=== PATIENT | female | born 1940 | race Caucasian/White ===

== ENCOUNTER → 2019-04-24 | Outpatient (CLI) | payer MEDICARE, OTHER ==
--- NOTE | 2019-04-24 13:59 | Diagnostic Imaging Report ---
PROCEDURE: CT head without contrast. TECHNIQUE: Multiple contiguous axial images were obtained through the brain without the use of intravenous contrast. Auto Exposure Controls were utilized during the CT exam to meet ALARA standards for radiation dose reduction. INDICATION: Dizziness and memory loss. COMPARISON: No prior studies are available for comparison. FINDINGS: Ventricles and sulci are prominent, consistent with cerebral atrophy. There is moderate periventricular hypodensity noted, consistent with chronic microvascular ischemia. No sulcal effacement or midline shift is identified. No acute intra-axial or extra-axial hemorrhage is detected. Cisterns are patent. Visualized paranasal sinuses are clear. IMPRESSION: Cerebral volume loss and changes of chronic microvascular ischemia. No acute intracranial process is detected. Dictated by: Dictated on workstation # [id number]
== END ==
LOC: RAD FS 12:25
PROVIDERS: ATTEND Family Medicine
DX: I67.82 Cerebral ischemia (principal); G93.89 Other specified disorders of brain
CPT/HCPCS: 70450

== ENCOUNTER 2021-11-15 13:04 | Emergency (ER) | payer MEDICARE, OTHER ==
[~2021-11-15] VITALS: Ht 154 cm; Wt 61.0 kg
[2021-11-15] MEDS ORDERED: fentaNYL INJ 100 MCG/2 ML AMP IVP ONE ×2 (13:15→15:15)
[2021-11-15] MEDS ORDERED: ORPHENADRINE 60 MG/2 ML (NORFLEX) AMP (ED ONLY) IV ONE (13:15)
[2021-11-15 13:33] LABS: BASOPHILS # (AUTO) 0.1 10^3/uL (0.0-0.1); BASOPHILS % (AUTO) 1 % (0-10); EOSINOPHILS # (AUTO) 0.1 10^3/uL (0.0-0.3); EOSINOPHILS % (AUTO) 1 % (0-10); HEMATOCRIT 41 % (35-52); HEMOGLOBIN 13.8 g/dL (11.5-16.0); LYMPHOCYTES # (AUTO) 1.8 10^3/uL (1.0-4.0); LYMPHOCYTES % (AUTO) 13 % (12-44); MEAN CORPUSCULAR HEMOGLOBIN 30 pg (25-34); MEAN CORPUSCULAR HGB CONC 33 g/dL (32-36); MEAN CORPUSCULAR VOLUME 89 fL (80-99); MEAN PLATELET VOLUME 9.1 fL (9.0-12.2); MONOCYTES # (AUTO) 0.9 10^3/uL (0.0-1.0); MONOCYTES % (AUTO) 6 % (0-12); NEUTROPHILS # (AUTO) 11.4 10^3/uL (1.8-7.8); NEUTROPHILS % (AUTO) 80 % (42-75); PLATELET COUNT 391 10^3/uL (130-400); WHITE BLOOD COUNT 14.4 10^3/uL (4.3-11.0)
[2021-11-15 13:52] LABS: BILIRUBIN,URINE NEGATIVE (NEGATIVE); CLARITY,URINE CLOUDY; COLOR,URINE YELLOW; GLUCOSE, URINE (UA) NEGATIVE (NEGATIVE); KETONES,URINE NEGATIVE (NEGATIVE); LEUKOCYTE ESTERASE ,URINE NEGATIVE (NEGATIVE); NITRITE,URINE NEGATIVE (NEGATIVE); PH,URINE 5.5 (5-9); PROTEIN,URINE TRACE (NEGATIVE)
[2021-11-15 13:59] LABS: BILIRUBIN,TOTAL 0.4 MG/DL (0.1-1.0); CALCIUM 9.5 MG/DL (8.5-10.1); CREATININE SERUM 0.78 MG/DL (0.60-1.30); MAGNESIUM 1.8 MG/DL (1.6-2.4); POTASSIUM 3.4 MMOL/L (3.6-5.0); TOTAL PROTEIN 7.3 GM/DL (6.4-8.2)
[2021-11-15 14:00] LABS: ALBUMIN 4.3 GM/DL (3.2-4.5)
[2021-11-15 14:06] LABS: BACTERIA,URINE FEW /HPF; RBC,URINE 0-2 /HPF
[2021-11-15 14:21] LABS: BAND NEUTROPHILS 1 %; BASOPHILS % (MANUAL) 1 %; EOSINOPHILS % (MANUAL) 0 %; LYMPHOCYTES % (MANUAL) 12 %; MONOCYTES % (MANUAL) 6 %; NEUTROPHILS % (MANUAL) 80 %
[2021-11-15 14:38] VITALS: BP 149/77
[2021-11-15] MEDS ORDERED: HOLD METFORMIN - RECEIVED CONTRAST 20 ML VIAL IV SCH (15:00)
[2021-11-15] MEDS ORDERED: IOHEXOL 350 MG/ML 100 ML (OMNIPAQUE 350) VIAL IV ONE (15:00)
[2021-11-15] MEDS ORDERED: NS 100 ML (IVPB) BAG IV ONE (15:00)
--- NOTE | 2021-11-15 15:16 | Diagnostic Imaging Report ---
PROCEDURE: CT abdomen and pelvis with contrast. TECHNIQUE: Multiple contiguous axial images were obtained through the abdomen and pelvis after administration of intravenous contrast. Auto Exposure Controls were utilized during the CT exam to meet ALARA standards for radiation dose reduction. All CT scans use one or more of the following dose optimizing techniques: automated exposure control, MA and/or KvP adjustment based on patient size and exam type or iterative reconstruction. INDICATION: Right flank pain. COMPARISON: No prior studies are available for comparison. The lung bases are clear. No discrete liver mass is identified. Gallbladder is surgically absent. There is no biliary ductal dilatation. Pancreas and spleen are unremarkable. No adrenal mass is identified. Kidneys are unremarkable apart from cortical low-attenuation lesion upper pole left kidney consistent with a cyst. There is a filter within the IVC. Aorta is nonaneurysmal. Small and large bowel loops are normal caliber. There is no obstruction. There is diverticulosis of the descending and sigmoid colon but no evidence of acute diverticulitis. Partially filled urinary bladder is unremarkable. There is no free fluid or fluid collection identified. Bony structures are nonacute. IMPRESSION: 1. Uncomplicated diverticulosis. 2. Left renal cyst. 3. No acute feature identified. Dictated by: Dictated on workstation # [id number]
[2021-11-15 16:05] LABS: PROTHROMBIN TIME PATIENT 31.6 SEC (12.2-14.7)
[2021-11-15] MEDS ORDERED: CYCL5TAB PO ×2 (16:37→17:01)
[2021-11-15] MEDS ORDERED: ACHD5005 PO ×2 (16:37→17:01)
--- NOTE | 2021-11-15 16:38 | ED General ---
General Chief Complaint: Back Problems Stated Complaint: BACK PAIN Nursing Triage Note: Patient has presented to ER with cc of right side back pain and spasams and frequent urination. Source of Information: Patient, Family, Old Records Exam Limitations: No Limitations History of Present Illness Date Seen by Provider: Nov 15, 2021 Allergies and Home Medications Allergies Coded Allergies: No Known Drug Allergies (Unverified , 11/15/21) Patient Home Medication List Cyclobenzaprine HCl (Cyclobenzaprine HCl) 5 Mg Tablet, 5 MG PO TID PRN for SPASMS Prescribed by: KEN HOLLIS on 11/15/21 1637 Hydrocodone/Acetaminophen (Hydrocodone-Acetamin 5-325 mg) 5 Mg-325 Mg Tablet, 1 TAB PO Q6H PRN for PAIN-MODERATE (5-7) Prescribed by: KEN HOLLIS on 11/15/21 1638 Past Zjgzvvk-Dysvbg-Qpwjdg Hx Patient Social History Tobacco Use?: No Use of E-Cig and/or Vaping dev: No Substance use?: No Alcohol Use?: No Physical Exam Vital Signs Vital Signs - First Documented 11/15/21 14:38 Temp 36.4 Pulse 110 Resp 22 B/P (MAP) 149/77 (101) Pulse Ox 100 O2 Delivery Room Air Capillary Refill : Height, Weight, BMI Height: '" Weight: lbs. oz. kg; 25.00 BMI Method: Progress/Results/Core Measures Suspected Sepsis SIRS Temperature: Pulse: 110 Respiratory Rate: 22 Laboratory Tests 11/15/21 13:20: White Blood Count 14.4H Blood Pressure 149 /77 Mean: 101 Laboratory Tests 11/15/21 13:20: Creatinine 0.78, INR Comment 3.0H, Platelet Count 391, Total Bilirubin 0.4 Results/Orders Lab Results Laboratory Tests Test 11/15/21 13:20 11/15/21 13:48 Range/Units White Blood Count 14.4 H 4.3-11.0 10^3/uL Red Blood Count 4.66 3.80-5.11 10^6/uL Hemoglobin 13.8 11.5-16.0 g/dL Hematocrit 41 35-52 % Mean Corpuscular Volume 89 80-99 fL Mean Corpuscular Hemoglobin 30 25-34 pg Mean Corpuscular Hemoglobin Concent 33 32-36 g/dL Red Cell Distribution Width 13.5 10.0-14.5 % Platelet Count 391 130-400 10^3/uL Mean Platelet Volume 9.1 9.0-12.2 fL Immature Granulocyte % (Auto) 1 % Neutrophils (%) (Auto) 80 H 42-75 % Lymphocytes (%) (Auto) 13 12-44 % Monocytes (%) (Auto) 6 0-12 % Eosinophils (%) (Auto) 1 0-10 % Basophils (%) (Auto) 1 0-10 % Neutrophils # (Auto) 11.4 H 1.8-7.8 10^3/uL Lymphocytes # (Auto) 1.8 1.0-4.0 10^3/uL Monocytes # (Auto) 0.9 0.0-1.0 10^3/uL Eosinophils # (Auto) 0.1 0.0-0.3 10^3/uL Basophils # (Auto) 0.1 0.0-0.1 10^3/uL Immature Granulocyte # (Auto) 0.1 0.0-0.1 10^3/uL Neutrophils % (Manual) 80 % Lymphocytes % (Manual) 12 % Monocytes % (Manual) 6 % Eosinophils % (Manual) 0 % Basophils % (Manual) 1 % Band Neutrophils 1 % Prothrombin Time 31.6 H 12.2-14.7 SEC INR Comment 3.0 H 0.8-1.4 Sodium Level 138 135-145 MMOL/L Potassium Level 3.4 L 3.6-5.0 MMOL/L Chloride Level 100 98-107 MMOL/L Carbon Dioxide Level 24 21-32 MMOL/L Anion Gap 14 5-14 MMOL/L Blood Urea Nitrogen 11 7-18 MG/DL Creatinine 0.78 0.60-1.30 MG/DL Estimat Glomerular Filtration Rate 76 BUN/Creatinine Ratio 14 Glucose Level 144 H 70-105 MG/DL Calcium Level 9.5 8.5-10.1 MG/DL Corrected Calcium 9.3 8.5-10.1 MG/DL Magnesium Level 1.8 1.6-2.4 MG/DL Total Bilirubin 0.4 0.1-1.0 MG/DL Aspartate Amino Transf (AST/SGOT) 22 5-34 U/L Alanine Aminotransferase (ALT/SGPT) 17 0-55 U/L Alkaline Phosphatase 125 40-136 U/L C-Reactive Protein 0.48 <0.50 MG/DL Total Protein 7.3 6.4-8.2 GM/DL Albumin 4.3 3.2-4.5 GM/DL Lipase 16 8-78 U/L Urine Color YELLOW Urine Clarity CLOUDY Urine pH 5.5 5-9 Urine Specific [place] 1.025 H 1.016-1.022 Urine Protein TRACE H NEGATIVE Urine Glucose (UA) NEGATIVE NEGATIVE Urine Ketones NEGATIVE NEGATIVE Urine Nitrite NEGATIVE NEGATIVE Urine Bilirubin NEGATIVE NEGATIVE Urine Urobilinogen 0.2 < = 1.0 MG/DL Urine Leukocyte Esterase NEGATIVE NEGATIVE Urine RBC (Auto) 2+ H NEGATIVE Urine RBC 0-2 /HPF Urine WBC 2-5 /HPF Urine Squamous Epithelial Cells 2-5 /HPF Urine Crystals NONE /LPF Urine Bacteria FEW H /HPF Urine Casts NONE /LPF Urine Mucus NEGATIVE /LPF Urine Culture Indicated YES My Orders Orders - KEN RODRIGUEZ MD Ed Iv/Invasive Line Start (11/15/21 13:12) Fentanyl Inj (Sublimaze Injection) (11/15/21 13:15) Orphenadrine Inj (Ed Only) (Norflex Inje (11/15/21 13:15) Cbc With Automated Diff (11/15/21 13:13) Comprehensive Metabolic Panel (11/15/21 13:13) Lipase (11/15/21 13:13) Magnesium (11/15/21 13:13) Ua Culture If Indicated (11/15/21 13:13) Crp Fs (11/15/21 13:13) Manual Differential (11/15/21 13:20) Urine Culture (11/15/21 13:48) Ct Abdomen/Pelvis W (11/15/21 14:26) Iohexol Injection (Omnipaque 350 Mg/Ml 1 (11/15/21 15:00) Received Contrast (Hold Metformin- Contr (11/15/21 15:00) Ns (Ivpb) (Sodium Chloride 0.9% Ivpb Bag (11/15/21 15:00) Protime With Inr (11/15/21 15:05) Fentanyl Inj (Sublimaze Injection) (11/15/21 15:15) Hydrocodone/Apap 5/325 Tablet (Lortab 5 (11/15/21 17:00) Hydrocodone/Apap 5/325 Tablet (Lortab 5 (11/15/21 16:50) Medications Given in ED Current Medications Medications Dose Ordered Sig/Tabitha Route Start Time Stop Time Status Last Admin Dose Admin Fentanyl Citrate 50 mcg ONCE ONCE IVP 11/15/21 13:15 11/15/21 13:16 DC 11/15/21 13:22 50 MCG Fentanyl Citrate 50 mcg ONCE ONCE IVP 11/15/21 15:15 11/15/21 15:16 DC 11/15/21 15:11 50 MCG Iohexol 100 ml ONCE ONCE IV 11/15/21 15:00 11/15/21 15:01 DC 11/15/21 14:59 100 ML Orphenadrine Citrate 30 mg ONCE ONCE IV 11/15/21 13:15 11/15/21 13:16 DC 11/15/21 13:21 30 MG Sodium Chloride 100 ml ONCE ONCE IV 11/15/21 15:00 11/15/21 15:01 DC 11/15/21 14:59 100 ML Vital Signs/I&O 11/15/21 14:38 Temp 36.4 Pulse 110 Resp 22 B/P (MAP) 149/77 (101) Pulse Ox 100 O2 Delivery Room Air Capillary Refill : Blood Pressure Mean: 101 Departure Impression Primary Impression: Muscle spasm of back Additional Impression: Right flank pain Disposition: HOME, SELF-CARE Condition: Improved Departure-Patient Inst. Decision time for Depature: 16:34 Referrals: MITA SALDIVAR MD (PCP/Family) Primary Care Physician Patient Instructions: Muscle Spasm ED Add. Discharge Instructions: Keep your follow-up appointment tomorrow. Use hydrocodone as prescribed for pain management. Hydrocodone may cause drowsiness and constipation. You may wish to take a stool softener with the hydrocodone to prevent constipation. Use with caution due to the drowsiness. Use cyclobenzaprine as prescribed for muscle spasms. This medication may also cause some drowsiness especially if used in combination with hydrocodone. Use with caution. You have been prescribed a lower dose to try until you know how you respond to it. Discussed these medications at your follow-up appointment with your doctor. Also discussed your urine culture. Results should be available on Monday or . Return to the ER if you have worsening symptoms despite following these instructions or if you develop new concerning problems. All discharge instructions reviewed with patient and/or family. Voiced understanding. Scripts Cyclobenzaprine HCl (Cyclobenzaprine HCl) 5 Mg Tablet 5 MG PO TID PRN for SPASMS, #10 TAB Prov: KEN RODRIGUEZ MD 11/15/21 Hydrocodone/Acetaminophen (Hydrocodone-Acetamin 5-325 mg) 5 Mg-325 Mg Tablet 1 TAB PO Q6H PRN for PAIN-MODERATE (5-7), #10 TAB Prov: KEN RODRIGUEZ MD 11/15/21 KEN RODRIGUEZ MD Nov 15, 2021 4:38 pm
[2021-11-15] MEDS ORDERED: HYDROcodone/APAP 5 MG/325 MG (LORTAB) TAB ONE (16:50)
[2021-11-15] MEDS ORDERED: HYDROcodone/APAP 5 MG/325 MG (LORTAB) TAB PO ONE (17:00)
== END 2021-11-15 16:44 | disposition home or self-care (01) ==
LOC: EDUNIT# 13:04 → ER FS 13:08
DX: M62.830 Muscle spasm of back (principal); R10.9 Unspecified abdominal pain
CPT/HCPCS: 36415; 74177; 80053; 81000; 83690; 83735; 85007; 85027; 85610; 86141; 87088; Q9967

== ENCOUNTER 2022-02-11 08:25 | Emergency (ER) | payer MEDICARE, OTHER ==
[~2022-02-11 08:25] MED LIST: ACHD5005 PO; CYCL5TAB PO
--- NOTE | 2022-02-11 08:29 | ED General ---
General Stated Complaint: FALL History of Present Illness Date Seen by Provider: Feb 11, 2022 Time Seen by Provider: 08:29 Initial Comments 82-year-old female presents following a fall. Patient has a skin tear on her left upper arm. Patient reports that it was dark and she just stumbled. Patient complains of chronic low back pain. She has known degenerative disc disease along with a lumbar fracture. She did not hit her head. She denies any numbness tingling. She does report she has had some difficulties with bowel mov ements over the last few days but has chronic problems with constipation. Reports that she has tried some "laxatives" with no relief. Patient was brought in by EMS. She received 3 mg morphine in route. Allergies and Home Medications Allergies Coded Allergies: No Known Drug Allergies (Unverified , 11/15/21) Patient Home Medication List Home Medication List Reviewed: Yes Cyclobenzaprine HCl (Cyclobenzaprine HCl) 5 Mg Tablet, 5 MG PO TID PRN for SPASMS Prescribed by: KEN HOLLIS on 11/15/21 1701 Hydrocodone/Acetaminophen (Hydrocodone-Acetamin 5-325 mg) 5 Mg-325 Mg Tablet, 1 TAB PO Q6H PRN for PAIN-MODERATE (5-7) Prescribed by: KEN HOLLIS on 11/15/21 1702 Review of Systems Review of Systems Constitutional: No chills, No fever EENTM: no symptoms reported Respiratory: no symptoms reported Cardiovascular: no symptoms reported Gastrointestinal: No abdominal pain; constipation; No nausea, No vomiting Genitourinary: no symptoms reported Musculoskeletal: see HPI, back pain Skin: see HPI Psychiatric/Neurological: No Symptoms Reported Hematologic/Lymphatic: No Symptoms Reported Immunological/Allergic: no symptoms reported Past Gpqwyls-Bnbrei-Jilzts Hx Past Medical History Surgeries: Yes Breast, Hysterectomy Respiratory: Yes Pulmonary Embolism Cardiac: Yes Deep Vein Thrombosis Neurological: No Reproductive Disorders: No Genitourinary: Yes (History of UTI) Gastrointestinal: Yes Colitis Musculoskeletal: Yes Chronic Back Pain Endocrine: No HEENT: No Cancer: No Psychosocial: No Integumentary: No Physical Exam Vital Signs Vital Signs - First Documented 02/11/22 08:25 Temp 36.4 Pulse 117 Resp 16 B/P (MAP) 152/96 (114) Pulse Ox 95 O2 Delivery Room Air Capillary Refill : Height, Weight, BMI Height: '" Weight: lbs. oz. kg; 25.00 BMI Method: General Appearance: No Apparent Distress, WD/WN Eyes: Bilateral Eye Normal Inspection HEENT: PERRL/EOMI, Moist Mucous Membranes Neck: Non Tender, Supple Respiratory: Lungs Clear, Normal Breath Sounds Cardiovascular: Regular Rate, Rhythm, No Edema Gastrointestinal: Non Tender, Soft Back: Other (Generalized tenderness lower back) Extremity: Normal Capillary Refill Neurologic/Psychiatric: Alert, Oriented x3, No Motor/Sensory Deficits, Normal Mood/Affect, bill of lading clerk II-XII Norm as Tested Skin: Other (Moderate skin tear left upper arm, nonsuturable) Progress/Results/Core Measures Suspected Sepsis SIRS Temperature: Pulse: Respiratory Rate: Blood Pressure / Mean: Results/Orders My Orders Orders - ROXANE GRAFF DO Abdomen (Kub) 1 View (02/11/22 08:29) Lumbar Spine 2 Or 3 View (02/11/22 08:29) Vital Signs/I&O 02/11/22 08:25 Temp 36.4 Pulse 117 Resp 16 B/P (MAP) 152/96 (114) Pulse Ox 95 O2 Delivery Room Air Capillary Refill : Progress Note : Progress Note Patient with a T12 compression fracture. This is likely about a week old. Patient was seen in [place] earlier this week following a fall and was told that she had a fracture which family thought was an L1. There is no L1 fracture noted on x-ray. I will place her in a TLSO to help with pain control. Her primary care provider is trying to arrange an outpatient MRI. She should also follow-up with her networking specialist. She already has hydrocodone and muscle relaxants prescribed. If they need anything stronger they need to follow-up with her primary care provider. She can start some MiraLAX to help with her chronic constipation. She is stable and discharged Departure Impression Primary Impression: Compression fracture of T12 vertebra Qualified Codes: S22.080A - Wedge compression fracture of T11-T12 vertebra, initial encounter for closed fracture Additional Impression: Constipation due to opioid therapy Disposition: HOME, SELF-CARE Condition: Stable Departure-Patient Inst. Referrals: MITA SALDIVAR MD (PCP) Primary Care Physician Patient Instructions: Vertebral Compression Fracture ED, Constipation, Adult ED Add. Discharge Instructions: MiraLAX 1-2 times daily as needed for soft daily stool while on opioid pain medication, drink plenty of fluid Please follow-up with your primary care provider arrange for further outpatient evaluation and pain management. ROXANE GRAFF DO Feb 11, 2022 08:29
--- NOTE | 2022-02-11 09:25 | Diagnostic Imaging Report ---
INDICATION: Constipation. FINDINGS: KUB. There is considerable stool within the ascending and transverse colon. There is gas with no stool seen from the splenic flexure to the rectum. The stomach and small bowel are not distended. There is IVC filter appearing in good orientation. IMPRESSION: 1. There is considerable stool within the right side of the colon. Dictated by: Dictated on workstation # [id number]
--- NOTE | 2022-02-11 09:29 | Diagnostic Imaging Report ---
INDICATION: Constipation. Back pain. FINDINGS: 3 views. There is grade 1 anterolisthesis of L4 on L5. There is associated degenerative disc and facet disease. There are no pars defects demonstrated. There is superior compression deformity of T12 with approximately 50% loss of body height. IMPRESSION: 1. There is a new compression fracture of T12 which was not present on previous CT scan of 11/15/2021. 2. Grade 1 anterolisthesis of L4 on L5 with advanced degenerative disc and facet disease. Dictated by: Dictated on workstation # [id number]
[2022-02-11 09:53] VITALS: BP 148/87
== END 2022-02-11 09:53 | disposition home or self-care (01) ==
LOC: ER FS 08:25 → EDUNIT# 08:25 → ER FS 09:53
DX: S22.080A Wedge compression fracture of T11-T12 vertebra, initial encounter for closed fracture (principal); K59.03 Drug induced constipation; T40.2X5A Adverse effect of other opioids, initial encounter; W19.XXXA Unspecified fall, initial encounter
CPT/HCPCS: 12013; 72100; 74018

== ENCOUNTER → 2022-02-16 | Outpatient (CLI) | payer MEDICARE, OTHER ==
--- NOTE | 2022-02-16 11:56 | Diagnostic Imaging Report ---
PROCEDURE: MRI lumbar spine. TECHNIQUE: Multiplanar, multisequence MRI of the lumbar spine was performed without contrast. INDICATION: Back pain, recent falls. COMPARISON: Exam is correlated with the abdominopelvic CT dated 11/15/2021 as well as correlated with lumbar radiographs 02/11/2022. FINDINGS: The T12 vertebral body fracture showed no convincing progressive stature loss when correlated with the recent lumbar radiographs but is new from the correlative CT. It showed moderate marrow edema consistent with a subacute recent fracture. Its superior endplate is retropulsed 4.8 mm and results in mild spinal canal stenosis. Marrow edema extends into the base of the left greater than right pedicles, but they did not appear fractured. Remaining level showed no other acute or subacute abnormalities. No additional fracture found. Anterolisthesis grade 1 of L3 on L4 and L4 on L5 is unchanged. The lower thoracic cord and conus appeared normal. No epidural or paraspinal hemorrhage or fluid collection. At L1-L2, the listhesis and endplate osteophytes result in a mild degree of spinal canal stenosis with [id number]-[id number] left and mild right foraminal narrowing. At L3-L4, disc bulge and endplate osteophytes with thickened ligamenta flava and facet arthrosis result in mild canal stenosis with no significant foraminal narrowing. At L4-L5, disc bulge, facet arthrosis, and ligamentous thickening result in jnbsawak-ei-gomplf canal stenosis with moderate biforaminal narrowing and vlqb-[id number]-[id number] bilateral lateral recess impingement. At the L5-S1 level, facet arthrosis, greater right, is present with no substantial stenosis. IMPRESSION: 1. Edema associated with the subacute T12 retropulsed vertebral body fracture showed no progressive stature loss from correlative radiographs and only mild resultant canal stenosis. No epidural or paraspinal hematoma. 2. No other acute or subacute bony injury. Degenerative listheses at multiple levels with multilevel foraminal and canal stenoses of varying severities, listed level by level above. Dictated by: Dictated on workstation # [id number]
== END ==
LOC: RAD 08:52
PROVIDERS: ATTEND Nurse Practitioner Family
DX: S32.010A Wedge compression fracture of first lumbar vertebra, initial encounter for closed fracture (principal); M47.816 Spondylosis without myelopathy or radiculopathy, lumbar region; M47.817 Spondylosis without myelopathy or radiculopathy, lumbosacral region; M51.26 Other intervertebral disc displacement, lumbar region; M48.061 Spinal stenosis, lumbar region without neurogenic claudication; X58.XXXA Exposure to other specified factors, initial encounter
CPT/HCPCS: 72148

== ENCOUNTER 2022-11-07 16:44 | Emergency (ER) | payer MEDICARE, OTHER ==
[~2022-11-07] VITALS: Ht 157.5 cm; Wt 54.5 kg
--- NOTE | 2022-11-07 16:51 | ED Fall/Injury ---
General Stated Complaint: FALL History of Present Illness Date Seen by Provider: Nov 07, 2022 Time Seen by Provider: 16:49 Initial Comments 82-year-old male presents with anterior chest wall pain. Patient fell approximately 4 hours ago. She has had pain since then. Patient was brought in by EMS because her family was just concerned. He did not have pain prior to the fall and has pain since then. Pain with deep breath or movement. Patient has poor balance and has frequent falls. She was admitted mechanical fall after she got tripped up with her walker Allergies and Home Medications Allergies Coded Allergies: No Known Drug Allergies (Unverified , 11/15/21) Patient Home Medication List Home Medication List Reviewed: Yes Cyclobenzaprine HCl (Cyclobenzaprine HCl) 5 Mg Tablet, 5 MG PO TID PRN for SPASMS Prescribed by: KEN HOLLIS on 11/15/211700 Hydrocodone/Acetaminophen (Hydrocodone-Acetamin 5-325 mg) 5 Mg-325 Mg Tablet, 1 TAB PO Q6H PRN for PAIN-MODERATE (5-7) Prescribed by: KEN HOLLIS on 11/15/21 170 Review of Systems Review of Systems Constitutional: see HPI Eyes: No Symptoms Reported Ears, Nose, Mouth, Throat: no symptoms reported Respiratory: no symptoms reported Gastrointestinal: no symptoms reported Genitourinary: no symptoms reported Musculoskeletal: no symptoms reported Skin: no symptoms reported Past Jtecqyw-Tujybh-Laekjj Hx Past Medical History Surgery/Hospitalization HX: Chronic back pain/spasms Surgeries: Yes Breast, Hysterectomy Respiratory: Yes Pulmonary Embolism Cardiac: Yes Deep Vein Thrombosis Neurological: No Reproductive Disorders: No Genitourinary: Yes (History of UTI) Gastrointestinal: Yes Colitis Musculoskeletal: Yes Chronic Back Pain Endocrine: No HEENT: No Cancer: No Psychosocial: No Integumentary: No Physical Exam Vital Signs Vital Signs - First Documented 11/07/22 11/07/22 16:45 17:00 Temp 36.9 Pulse 80 Resp 18 B/P (MAP) 124/69 (87) Pulse Ox 95 O2 Delivery Room Air Capillary Refill : Height, Weight, BMI Height: '" Weight: lbs. oz. kg; 25.00 BMI Method: General Appearance: WD/WN, no apparent distress Cardiovascular: normal peripheral pulses, regular rate, rhythm Respiratory: lungs clear; No respiratory distress; other (anterior left sided chest wall tenderness ) Extremities: normal range of motion Neurologic/Psychiatric: alert, normal mood/affect, oriented x 3 Skin: normal color, warm/dry Progress/Results/Core Measures Results/Orders My Orders Orders - ROXANE GRAFF DO Ekg Tracing (11/07/22 16:48) Monitor-Rhythm Ecg Trace Only (11/07/22 16:48) Ribs/Unilateral With Chest (11/07/22 16:48) Sternum (11/07/22 16:48) Vital Signs/I&O 11/07/22 11/07/22 11/07/22 16:45 17:00 17:44 Temp 36.9 36.9 Pulse 80 80 71 Resp 18 18 B/P (MAP) 124/69 (87) 124/69 (87) 139/59 Pulse Ox 95 96 O2 Delivery Room Air Room Air Room Air Progress Progress Note : Progress Note Patient with sternal fracture. I discussed supportive care with her. Patient has hydrocodone and other pain medicines already prescribed. Recommend she follow-up with her primary care provider as needed. She is stable and discharged home. Initial ECG Impression Date: Nov 07, 2022 Initial ECG Impression Time: 16:55 Initial ECG Rate: 70 Initial ECG Rhythm: Normal Sinus Initial ECG Intervals: Normal Initial ECG Impression: Normal Comment no acute changes Diagnostic Imaging Diagonstic Imaging: Xray Plain Films/CT/US/NM/MRI: chest Comments Draft Date of Exam:11/07/22 STERNUM INDICATION: Sternal pain. Fall. FINDINGS: Three is a small nondisplaced fracture involving the anterior cortex of the mid sternum on the lateral view. There is no clear fracture line extending through the posterior cortex of the sternum. The manubrium is unremarkable. IMPRESSION: 1. Nondisplaced fracture of the anterior cortex of the mid left sternum. RIBS/UNILATERAL WITH CHEST INDICATION: Fall. Sternal and left rib pain. COMPARISON: No relevant comparison is available. FINDINGS: The lungs are clear. There are no findings of pneumonia or edema. There is no effusion or pleural collection. There is no pneumothorax. Heart size and mediastinal contours appear appropriate. There is no edema or failure. There are surgical clips in the right axilla. There has been prior left rotator cuff repair. There is an IVC filter and clips within the right upper quadrant. There has been prior resection of the distal left clavicle. There is no identifiable left-sided rib fracture. IMPRESSION: 1. No radiographic evidence of an acute cardiopulmonary process. 2. No evidence of a left rib fracture. Reviewed: Reviewed by Me, Reviewed/Discussed Departure Impression Primary Impression: Sternum fx Qualified Codes: S22.20XA - Unspecified fracture of sternum, initial encounter for closed fracture Additional Impression: Frequent falls Disposition: HOME, SELF-CARE Condition: Stable Departure-Patient Inst. Referrals: MITA SALDIVAR MD (PCP/Family) Primary Care Physician Patient Instructions: Sternal Fracture Add. Discharge Instructions: topical lidocaine cream or gel. voltaren cream use as directed on package as needed. follow up with primary care provider in 1 week for a recheck. ROXANE GRAFF DO Nov 07, 2022 16:51
--- NOTE | 2022-11-07 17:19 | Diagnostic Imaging Report ---
INDICATION: Sternal pain. Fall. FINDINGS: Three is a small nondisplaced fracture involving the anterior cortex of the mid sternum on the lateral view. There is no clear fracture line extending through the posterior cortex of the sternum. The manubrium is unremarkable. IMPRESSION: 1. Nondisplaced fracture of the anterior cortex of the mid left sternum. Dictated by: Dictated on workstation # [id number]
--- NOTE | 2022-11-07 17:22 | Diagnostic Imaging Report ---
INDICATION: Fall. Sternal and left rib pain. COMPARISON: No relevant comparison is available. FINDINGS: The lungs are clear. There are no findings of pneumonia or edema. There is no effusion or pleural collection. There is no pneumothorax. Heart size and mediastinal contours appear appropriate. There is no edema or failure. There are surgical clips in the right axilla. There has been prior left rotator cuff repair. There is an IVC filter and clips within the right upper quadrant. There has been prior resection of the distal left clavicle. There is no identifiable left-sided rib fracture. IMPRESSION: 1. No radiographic evidence of an acute cardiopulmonary process. 2. No evidence of a left rib fracture. Dictated by: Dictated on workstation # [id number]
[2022-11-07 17:44] VITALS: BP 139/59
== END 2022-11-07 17:44 | disposition home or self-care (01) ==
LOC: EDUNIT# 16:44 → ER FS 16:45
DX: S22.20XA Unspecified fracture of sternum, initial encounter for closed fracture (principal); R29.6 Repeated falls; W19.XXXA Unspecified fall, initial encounter
CPT/HCPCS: 71101; 71120; 93005